=== PATIENT | male | born 1940 | race Caucasian/White ===

== ENCOUNTER 2017-10-06 05:38 | Inpatient (IN) ==
[2017-10-06] MEDS ORDERED: VANCOMYCIN INJ 1,000 MG in SODIUM CHLORIDE 0.9% 250 ML IV ONE (06:00)
[2017-10-06] MEDS ORDERED: ceFAZolin 1,000 MG in SYRINGE 1 EACH IV ONE (06:00)
[2017-10-06] MEDS ORDERED: ceFAZolin 1,000 MG VIAL ONE (06:01)
[2017-10-06] MEDS ORDERED: VANCOMYCIN 1,000 MG VIAL ONE (06:01)
[2017-10-06] MEDS ORDERED: TRANEXAMIC ACID 1,000 MG/10 ML VIAL IV ONE (06:20)
[2017-10-06] MEDS: SODIUM CHLORIDE 0.9% 1,000 ML IV SCH (06:45)
[2017-10-06] MEDS ORDERED: PANTOPRAZOLE 40 MG TABLET PO ONE ×2 (06:57→07:04)
[2017-10-06] MEDS ORDERED: ONDANSETRON 4 MG/2 ML VIAL IV PRN ×2 (08:36→09:28)
[2017-10-06] MEDS ORDERED: diphenhydrAMINE CAP 25 MG CAPSULE PO PRN (08:36)
[2017-10-06] MEDS ORDERED: NALOXONE 0.4 MG/ML VIAL IV PRN (08:36)
[2017-10-06] MEDS ORDERED: TEMAZEPAM 7.5 MG CAPSULE PO PRN (08:36)
[2017-10-06] MEDS ORDERED: PROMETHAZINE 25 MG/1 ML VIAL IM PRN (08:36)
[2017-10-06] MEDS ORDERED: HYDROmorphone 2 MG/1 ML VIAL IV PRN (08:36)
[2017-10-06] MEDS ORDERED: LACTULOSE 20 GM/30 ML UDCUP PO PRN (08:36)
[2017-10-06] MEDS ORDERED: BISACODYL 10 MG SUPP RECTAL PRN (08:36)
[2017-10-06] MEDS ORDERED: GABAPENTIN 600 MG TABLET PO PRN (08:39)
[2017-10-06] MEDS ORDERED: FUROSEMIDE 40 MG TABLET PO PRN (08:39)
[2017-10-06] MEDS ORDERED: CETIRIZINE 10 MG TABLET PO PRN (08:39)
[2017-10-06] MEDS ORDERED: GLUCAGON 1 MG VIAL IM PRN (08:41)
[2017-10-06] MEDS ORDERED: DEXTROSE 50% 25 GM/50 ML VIAL IV PRN (08:41)
[2017-10-06] MEDS ORDERED: ROPIVACAINE 0.5% 30 ML VIAL ONE (08:55)
[2017-10-06] MEDS ORDERED: Krill Oil [Krill Oil] 500 MG PO SCH (09:00)
[2017-10-06] MEDS ORDERED: PROPOFOL 200 MG/20 ML VIAL IV ONE (09:02)
[2017-10-06] MEDS ORDERED: fentaNYL 100 MCG/2 ML VIAL ONE (09:02)
[2017-10-06] MEDS ORDERED: KETAMINE 500 MG/10 ML VIAL ONE (09:03)
[2017-10-06] MEDS ORDERED: PROPOFOL 500 MG/50 ML BOTTLE IV ONE (09:03)
[2017-10-06] MEDS ORDERED: MIDAZOLAM 2 MG/2 ML VIAL ONE (09:03)
[2017-10-06] MEDS ORDERED: LACTATED RINGERS 1,000 ML IV ONE (09:03)
[2017-10-06] MEDS ORDERED: HYDROmorphone PCA 30 MG/30 ML SYRINGE IV ONE (09:09)
[2017-10-06] MEDS: HYDROmorphone PCA 30 MG/30 ML SYRINGE IV SCH (09:11)
[2017-10-06] MEDS ORDERED: HYDROmorphone 2 MG/1 ML VIAL ONE (09:26)
[2017-10-06] MEDS ORDERED: ONDANSETRON 4 MG/2 ML VIAL ONE (09:26)
[2017-10-06] MEDS: HYDROmorphone 2 MG/1 ML VIAL IV PRN ×3 (09:32→09:51)
[2017-10-06] MEDS ORDERED: INFLUENZA VIRUS VACCINE 0.5 ML SYRINGE IM ONE (10:39)
[2017-10-06] MEDS: DOCUSATE SODIUM 100 MG CAPSULE PO SCH ×2 (13:19→21:49)
[2017-10-06] MEDS: MULTIVITAMIN (CENTRUM) TABLET PO SCH (13:19)
[2017-10-06] MEDS: VALSARTAN 80 MG TABLET PO SCH (13:20)
[2017-10-06] MEDS: METOPROLOL TARTRATE 50 MG TABLET PO SCH (13:20)
[2017-10-06] MEDS: PANTOPRAZOLE 40 MG TABLET PO SCH (13:21)
[2017-10-06] MEDS: LYSINE 500 MG TABLET PO SCH (13:21)
[2017-10-06] MEDS: INSULIN REGULAR 100 UNIT/ML SUBCUT SCH ×3 (13:21→21:49)
[2017-10-06] MEDS: NIACIN 500 MG TABLET PO SCH (13:21)
[2017-10-06] MEDS: CHOLECALCIFEROL 1,000 UNIT TABLET PO SCH (13:21)
[2017-10-06] MEDS: ceFAZolin 2,000 MG in PREMIX 1 EACH IV SCH ×2 (13:27→19:45)
[2017-10-06] MEDS ORDERED: VALSARTAN 80 MG TABLET PO ONE (14:07)
[2017-10-06] MEDS: INSULIN LISPRO PROTAMINE/LISPRO 75/25 100 UNIT/ML SUBCUT SCH ×2 (17:13→17:21)
[2017-10-06] MEDS: FONDAPARINUX 2.5 MG/0.5 ML SYRINGE SUBCUT SCH (19:45)
[2017-10-06] MEDS: ALFUZOSIN 10 MG TABLET PO SCH (21:49)
[2017-10-06] MEDS: SIMVASTATIN 40 MG TABLET PO SCH (21:49)
[2017-10-06] MEDS: FENOFIBRATE 160 MG TABLET PO SCH (21:49)
[2017-10-07] MEDS: TEMAZEPAM 15 MG CAPSULE PO SCH ×2 (00:03→21:55)
[2017-10-07 04:05] LABS: Basophils % 0.4 % (0.0-0.8); Eosinophils # 0.1 10*3/uL (0.0-0.87); Eosinophils % 0.5 % (0.00-10.9); Hematocrit 27.5 VOL% (42.0-52.0); Hemoglobin 9.3 GM/DL (14.0-18.0); Immature Granulocytes % 0.5 %; Immature Granulocytes Absolute 0.05 #; Lymphocytes # 0.6 10*3/uL (1.4-4.0); Lymphocytes % 6.3 % (21.2-54.2); Mean Corpuscular HGB Conc 33.8 GM/DL (32-36); Mean Corpuscular Hemoglobin 30 PG (27-34); Monocytes % 10.3 % (1.7-12.7); Neutrophils # 7.8 10*3/uL (1.4-7.4); Platelet Count 242 T/CUMM (130-400); Red Blood Count 3.09 MC/CUMM (3.8-5.5); Red Cell Distribution Width 13.7 % (9.3-17.3); White Blood Count 9.5 T/CUMM (4-12)
[2017-10-07 04:45] LABS: Calcium 9.8 MG/DL (8.5-10.1); Osmolality,Calculated 282.7 MOS/KG (273-304); Potassium 3.6 MMOL/L (3.5-5.1)
[2017-10-07 05:05] LABS: Risk Ratio 2.29; VLDL CHOLESTEROL 16.2 MG/DL
[2017-10-07] MEDS: CHOLECALCIFEROL 1,000 UNIT TABLET PO SCH (09:32)
[2017-10-07] MEDS: NIACIN 500 MG TABLET PO SCH (09:32)
[2017-10-07] MEDS: MULTIVITAMIN (CENTRUM) TABLET PO SCH (09:33)
[2017-10-07] MEDS: VALSARTAN 80 MG TABLET PO SCH (09:33)
[2017-10-07] MEDS: LYSINE 500 MG TABLET PO SCH (09:33)
[2017-10-07] MEDS: PANTOPRAZOLE 40 MG TABLET PO SCH (09:33)
[2017-10-07] MEDS: DOCUSATE SODIUM 100 MG CAPSULE PO SCH ×2 (09:33→21:55)
[2017-10-07] MEDS: METOPROLOL TARTRATE 50 MG TABLET PO SCH (09:33)
[2017-10-07] MEDS: INSULIN REGULAR 100 UNIT/ML SUBCUT SCH ×4 (09:38→21:53)
[2017-10-07] MEDS: INSULIN LISPRO PROTAMINE/LISPRO 75/25 100 UNIT/ML SUBCUT SCH ×2 (09:38→17:28)
[2017-10-07] MEDS: FONDAPARINUX 2.5 MG/0.5 ML SYRINGE SUBCUT SCH (19:52)
[2017-10-07] MEDS: ALFUZOSIN 10 MG TABLET PO SCH (21:55)
[2017-10-07] MEDS: SIMVASTATIN 40 MG TABLET PO SCH (21:55)
[2017-10-07] MEDS: FENOFIBRATE 160 MG TABLET PO SCH (21:55)
[2017-10-08 07:23] LABS: Basophils % 0.1 % (0.0-0.8); Eosinophils % 0.3 % (0.00-10.9); Hematocrit 23.1 VOL% (42.0-52.0); Hemoglobin 7.6 GM/DL (14.0-18.0); Immature Granulocytes % 0.6 %; Immature Granulocytes Absolute 0.05 #; Lymphocytes # 0.6 10*3/uL (1.4-4.0); Lymphocytes % 6.3 % (21.2-54.2); Mean Corpuscular HGB Conc 32.9 GM/DL (32-36); Mean Corpuscular Hemoglobin 30 PG (27-34); Mean Platelet Volume 10.7 FL (9.6-12.0); Monocytes # 0.8 10*3/uL (0.11-0.8); Monocytes % 8.8 % (1.7-12.7); Neutrophils # 7.4 10*3/uL (1.4-7.4); Neutrophils % 83.9 % (38.7-73.9); Platelet Count 217 T/CUMM (130-400); Red Blood Count 2.51 MC/CUMM (3.8-5.5); Red Cell Distribution Width 13.7 % (9.3-17.3); White Blood Count 8.8 T/CUMM (4-12)
[2017-10-08] MEDS ORDERED: SODIUM CHLORIDE 0.9% 1,000 ML IV PRN (08:43)
[2017-10-08] MEDS ORDERED: TUBERCULIN SKIN TEST 0.1 ML SYRINGE INTRADERM ONE (11:05)
[2017-10-08] MEDS: INSULIN REGULAR 100 UNIT/ML SUBCUT SCH ×4 (11:09→20:47)
[2017-10-08] MEDS: MULTIVITAMIN (CENTRUM) TABLET PO SCH (11:09)
[2017-10-08] MEDS: INSULIN LISPRO PROTAMINE/LISPRO 75/25 100 UNIT/ML SUBCUT SCH ×2 (11:09→18:30)
[2017-10-08] MEDS: DOCUSATE SODIUM 100 MG CAPSULE PO SCH ×2 (11:10→20:47)
[2017-10-08] MEDS: METOPROLOL TARTRATE 50 MG TABLET PO SCH (11:10)
[2017-10-08] MEDS: VALSARTAN 80 MG TABLET PO SCH (11:10)
[2017-10-08] MEDS: CHOLECALCIFEROL 1,000 UNIT TABLET PO SCH (11:11)
[2017-10-08] MEDS: PANTOPRAZOLE 40 MG TABLET PO SCH (11:11)
[2017-10-08] MEDS: LYSINE 500 MG TABLET PO SCH (11:11)
[2017-10-08] MEDS: NIACIN 500 MG TABLET PO SCH (11:11)
[2017-10-08] MEDS: SODIUM CHLORIDE 0.9% 1,000 ML IV SCH (16:01)
[2017-10-08] MEDS: HYDROmorphone PCA 30 MG/30 ML SYRINGE IV SCH (16:01)
[2017-10-08] MEDS: FONDAPARINUX 2.5 MG/0.5 ML SYRINGE SUBCUT SCH (20:40)
[2017-10-08] MEDS: FENOFIBRATE 160 MG TABLET PO SCH (20:47)
[2017-10-08] MEDS: ALFUZOSIN 10 MG TABLET PO SCH (20:47)
[2017-10-08] MEDS: SIMVASTATIN 40 MG TABLET PO SCH (20:47)
[2017-10-08] MEDS: TEMAZEPAM 15 MG CAPSULE PO SCH (21:04)
[2017-10-09 06:20] LABS: Basophils % 0.1 % (0.0-0.8); Eosinophils # 0.2 10*3/uL (0.0-0.87); Eosinophils % 2.4 % (0.00-10.9); Hematocrit 28.6 VOL% (42.0-52.0); Hemoglobin 9.7 GM/DL (14.0-18.0); Immature Granulocytes % 0.9 %; Immature Granulocytes Absolute 0.07 #; Lymphocytes # 0.7 10*3/uL (1.4-4.0); Lymphocytes % 8.8 % (21.2-54.2); Mean Corpuscular HGB Conc 33.9 GM/DL (32-36); Mean Corpuscular Hemoglobin 30 PG (27-34); Mean Corpuscular Volume 89.1 FL (87-102); Mean Platelet Volume 10.7 FL (9.6-12.0); Monocytes # 0.7 10*3/uL (0.11-0.8); Monocytes % 8.6 % (1.7-12.7); Neutrophils # 6.2 10*3/uL (1.4-7.4); Neutrophils % 79.2 % (38.7-73.9); Platelet Count 222 T/CUMM (130-400); Red Blood Count 3.21 MC/CUMM (3.8-5.5); Red Cell Distribution Width 14.3 % (9.3-17.3); White Blood Count 7.8 T/CUMM (4-12)
[2017-10-09 06:55] LABS: Calcium 10.1 MG/DL (8.5-10.1); Magnesium 1.9 MG/DL (1.8-2.4); Osmolality,Calculated 288.1 MOS/KG (273-304); Potassium 4.8 MMOL/L (3.5-5.1)
[2017-10-09] MEDS: INSULIN LISPRO PROTAMINE/LISPRO 75/25 100 UNIT/ML SUBCUT SCH ×2 (09:07→17:03)
[2017-10-09] MEDS: INSULIN REGULAR 100 UNIT/ML SUBCUT SCH ×4 (09:07→20:55)
[2017-10-09] MEDS: MAGNESIUM HYDROXIDE SUSP 30 ML UDCUP PO PRN (09:08)
[2017-10-09] MEDS: NIACIN 500 MG TABLET PO SCH (09:08)
[2017-10-09] MEDS: PANTOPRAZOLE 40 MG TABLET PO SCH (09:08)
[2017-10-09] MEDS: LYSINE 500 MG TABLET PO SCH (09:08)
[2017-10-09] MEDS: DOCUSATE SODIUM 100 MG CAPSULE PO SCH ×2 (09:08→20:55)
[2017-10-09] MEDS: MULTIVITAMIN (CENTRUM) TABLET PO SCH (09:08)
[2017-10-09] MEDS: CHOLECALCIFEROL 1,000 UNIT TABLET PO SCH (09:08)
[2017-10-09] MEDS: METOPROLOL TARTRATE 50 MG TABLET PO SCH ×2 (09:08→20:54)
[2017-10-09] MEDS: VALSARTAN 80 MG TABLET PO SCH (09:08)
[2017-10-09] MEDS: FENOFIBRATE 160 MG TABLET PO SCH (20:54)
[2017-10-09] MEDS: ALFUZOSIN 10 MG TABLET PO SCH (20:54)
[2017-10-09] MEDS: FONDAPARINUX 2.5 MG/0.5 ML SYRINGE SUBCUT SCH (20:55)
[2017-10-09] MEDS: SIMVASTATIN 40 MG TABLET PO SCH (20:55)
[2017-10-09] MEDS: TEMAZEPAM 15 MG CAPSULE PO SCH (20:58)
[2017-10-10 06:17] LABS: Basophils % 0.5 % (0.0-0.8); Eosinophils # 0.4 10*3/uL (0.0-0.87); Eosinophils % 5.6 % (0.00-10.9); Hematocrit 25.7 VOL% (42.0-52.0); Hemoglobin 8.8 GM/DL (14.0-18.0); Immature Granulocytes % 1.2 %; Immature Granulocytes Absolute 0.08 #; Lymphocytes # 0.8 10*3/uL (1.4-4.0); Lymphocytes % 12.7 % (21.2-54.2); Mean Corpuscular HGB Conc 34.2 GM/DL (32-36); Mean Corpuscular Hemoglobin 30 PG (27-34); Mean Corpuscular Volume 87.4 FL (87-102); Mean Platelet Volume 10.8 FL (9.6-12.0); Monocytes # 0.5 10*3/uL (0.11-0.8); Monocytes % 7.8 % (1.7-12.7); Neutrophils # 4.8 10*3/uL (1.4-7.4); Neutrophils % 72.2 % (38.7-73.9); Platelet Count 242 T/CUMM (130-400); Red Blood Count 2.94 MC/CUMM (3.8-5.5); Red Cell Distribution Width 14.5 % (9.3-17.3); White Blood Count 6.6 T/CUMM (4-12)
[2017-10-10 06:44] LABS: Calcium 9.3 MG/DL (8.5-10.1); Magnesium 1.9 MG/DL (1.8-2.4); Osmolality,Calculated 283.1 MOS/KG (273-304); Potassium 4.3 MMOL/L (3.5-5.1)
[2017-10-10 06:48] LABS: Calcium 9.3 MG/DL (8.5-10.1); Osmolality,Calculated 283.1 MOS/KG (273-304); Potassium 4.3 MMOL/L (3.5-5.1)
[2017-10-10] MEDS ORDERED: BUPIVACAINE 0.5% 50 ML VIAL MISC INJ ONE (08:01)
[2017-10-10] MEDS: INSULIN REGULAR 100 UNIT/ML SUBCUT SCH ×4 (08:55→22:24)
[2017-10-10] MEDS: DOCUSATE SODIUM 100 MG CAPSULE PO SCH ×2 (08:56→22:24)
[2017-10-10] MEDS: MULTIVITAMIN (CENTRUM) TABLET PO SCH (08:56)
[2017-10-10] MEDS: VALSARTAN 80 MG TABLET PO SCH (08:56)
[2017-10-10] MEDS: METOPROLOL TARTRATE 50 MG TABLET PO SCH ×2 (08:56→22:24)
[2017-10-10] MEDS: PANTOPRAZOLE 40 MG TABLET PO SCH (08:57)
[2017-10-10] MEDS: LYSINE 500 MG TABLET PO SCH (08:57)
[2017-10-10] MEDS: NIACIN 500 MG TABLET PO SCH (08:57)
[2017-10-10] MEDS: CHOLECALCIFEROL 1,000 UNIT TABLET PO SCH (08:57)
[2017-10-10] MEDS ORDERED: BETAMETH SODIUM PHOS/ACETATE 30 MG/5 ML VIAL IM SCH (09:00)
[2017-10-10] MEDS: INSULIN LISPRO PROTAMINE/LISPRO 75/25 100 UNIT/ML SUBCUT SCH ×2 (09:13→16:16)
[2017-10-10] MEDS: FONDAPARINUX 2.5 MG/0.5 ML SYRINGE SUBCUT SCH (22:24)
[2017-10-10] MEDS: FENOFIBRATE 160 MG TABLET PO SCH (22:24)
[2017-10-10] MEDS: SIMVASTATIN 40 MG TABLET PO SCH (22:24)
[2017-10-10] MEDS: ALFUZOSIN 10 MG TABLET PO SCH (22:24)
[2017-10-10] MEDS: TEMAZEPAM 15 MG CAPSULE PO SCH (22:25)
[2017-10-10] MEDS: MAGNESIUM HYDROXIDE SUSP 30 ML UDCUP PO PRN (23:54)
[2017-10-11 06:09] LABS: Basophils % 0.1 % (0.0-0.8); Hematocrit 30.8 VOL% (42.0-52.0); Hemoglobin 10.3 GM/DL (14.0-18.0); Immature Granulocytes % 1.1 %; Immature Granulocytes Absolute 0.09 #; Lymphocytes # 0.6 10*3/uL (1.4-4.0); Lymphocytes % 7.6 % (21.2-54.2); Mean Corpuscular HGB Conc 33.4 GM/DL (32-36); Mean Corpuscular Hemoglobin 29 PG (27-34); Mean Corpuscular Volume 87.5 FL (87-102); Mean Platelet Volume 10.5 FL (9.6-12.0); Monocytes # 0.5 10*3/uL (0.11-0.8); Monocytes % 6.1 % (1.7-12.7); Neutrophils # 7.1 10*3/uL (1.4-7.4); Neutrophils % 85.1 % (38.7-73.9); Platelet Count 321 T/CUMM (130-400); Red Blood Count 3.52 MC/CUMM (3.8-5.5); Red Cell Distribution Width 13.8 % (9.3-17.3); White Blood Count 8.3 T/CUMM (4-12)
[2017-10-11] MEDS: INSULIN LISPRO PROTAMINE/LISPRO 75/25 100 UNIT/ML SUBCUT SCH (09:47)
[2017-10-11] MEDS: MULTIVITAMIN (CENTRUM) TABLET PO SCH (09:48)
[2017-10-11] MEDS: DOCUSATE SODIUM 100 MG CAPSULE PO SCH (09:48)
[2017-10-11] MEDS: VALSARTAN 80 MG TABLET PO SCH (09:48)
[2017-10-11] MEDS: PANTOPRAZOLE 40 MG TABLET PO SCH (09:48)
[2017-10-11] MEDS: INSULIN REGULAR 100 UNIT/ML SUBCUT SCH ×2 (09:48→13:10)
[2017-10-11] MEDS: METOPROLOL TARTRATE 50 MG TABLET PO SCH (09:48)
[2017-10-11] MEDS: LYSINE 500 MG TABLET PO SCH (09:48)
[2017-10-11] MEDS: NIACIN 500 MG TABLET PO SCH (09:49)
[2017-10-11] MEDS: CHOLECALCIFEROL 1,000 UNIT TABLET PO SCH (09:49)
[2017-10-11 11:42] VITALS: BP 192/78
== END 2017-10-11 13:00 | disposition swing bed (61) | DRG 470 ==
LOC: N.SDSINP 05:38 → N.3E 10:13
PROVIDERS: ADMIT Orthopaedic Surgery; ATTEND Orthopaedic Surgery

== ENCOUNTER 2021-06-17 12:50 | Inpatient (IN) ==
[2021-06-17] MEDS ORDERED: MAGNESIUM SULF RIDER 2 GM/50 ML PREMIX IV PRN (13:21)
[2021-06-17] MEDS ORDERED: DEXTROSE 50% 25 GM/50 ML VIAL IV PRN (13:21)
[2021-06-17] MEDS ORDERED: ONDANSETRON 4 MG/2 ML VIAL IV PRN (13:21)
[2021-06-17] MEDS ORDERED: GLUCAGON 1 MG VIAL IM PRN (13:21)
[2021-06-17] MEDS ORDERED: MAGNESIUM SULF RIDER 4 GM/100 ML PREMIX IV PRN (13:21)
[2021-06-17] MEDS ORDERED: hydrALAZINE 20 MG/1 ML VIAL IV PRN (13:48)
[2021-06-17 14:47] LABS: Basophils % 0.7 % (0.0-0.8); Eosinophils # 0.1 10*3/uL (0.0-0.87); Hematocrit 30.5 VOL% (42.0-52.0); Hemoglobin 10.1 GM/DL (14.0-18.0); Immature Granulocytes % 0.5 %; Immature Granulocytes Absolute 0.03 #; Lymphocytes # 0.8 10*3/uL (1.4-4.0); Mean Corpuscular HGB Conc 33.1 GM/DL (32-36); Mean Corpuscular Volume 89.4 FL (87-102); Mean Platelet Volume 9.5 FL (9.6-12.0); Monocytes % 5.8 % (1.7-12.7); Platelet Count 294 T/CUMM (130-400); Red Blood Count 3.41 MC/CUMM (3.8-5.5); Red Cell Distribution Width 13.2 % (9.3-17.3)
[2021-06-17] MEDS: SODIUM CHLORIDE 0.9% 1,000 ML IV SCH ×2 (14:59→22:31)
[2021-06-17] MEDS: PANTOPRAZOLE 40 MG TABLET PO SCH (14:59)
[2021-06-17] MEDS: cefTRIAXone 1,000 MG in SODIUM CHLORIDE 0.9% 100 ML IV SCH (14:59)
[2021-06-17 15:15] LABS: Albumin 3.8 G/DL (3.4-5.0); Bilirubin,Total 0.5 MG/DL (0.20-1.00); Calcium 10.8 MG/DL (8.5-10.1); Osmolality,Calculated 282.1 MOS/KG (273-304); Total Protein 7.1 G/DL (6.4-8.2)
[2021-06-17] MEDS: INSULIN LISPRO 100 UNIT/ML SUBCUT SCH ×2 (17:16→20:41)
[2021-06-17] MEDS: ACETAMINOPHEN 325 MG TABLET PO PRN (17:16)
[2021-06-17] MEDS: amLODIPine 5 MG TABLET PO SCH (17:16)
[2021-06-17 17:46] LABS: Bilirubin,Urine Negative (Negative); Blood, Urine Negative (Negative); Glucose,Urine (UA) >=500 mg/dL (Negative); Ketones,Urine 5 mg/dL (Negative); Mucus,Urine Occasional /LPF (Occasional); Nitrite,Urine Negative (Negative); Protein,Urine 30 MG/DL; RBC,Urine 1 /HPF (0-4); Urine Appearance CLEAR (Clear); Urine Color Yellow (Yellow); Urine Specific Gravity 1.015 (1.001-1.035); Urine Urobilinogen < 2.0 EU/DL (0.2-1.0)
[2021-06-17] MEDS: DOCUSATE SODIUM 100 MG CAPSULE PO SCH (20:41)
[2021-06-18] MEDS: ACETAMINOPHEN 325 MG TABLET PO PRN ×2 (00:34→06:17)
[2021-06-18 05:54] LABS: Basophils % 0.6 % (0.0-0.8); Eosinophils # 0.3 10*3/uL (0.0-0.87); Eosinophils % 5.3 % (0.00-10.9); Hematocrit 27.5 VOL% (42.0-52.0); Hemoglobin 9.2 GM/DL (14.0-18.0); Immature Granulocytes % 0.4 %; Immature Granulocytes Absolute 0.02 #; Lymphocytes % 19.9 % (21.2-54.2); Mean Corpuscular HGB Conc 33.5 GM/DL (32-36); Mean Corpuscular Volume 88.7 FL (87-102); Monocytes % 9.3 % (1.7-12.7); Neutrophils % 64.5 % (38.7-73.9); Platelet Count 273 T/CUMM (130-400); Red Cell Distribution Width 13.1 % (9.3-17.3); White Blood Count 4.9 T/CUMM (4-12)
[2021-06-18 06:10] LABS: Albumin 3.3 G/DL (3.4-5.0); Bilirubin,Total 0.5 MG/DL (0.20-1.00); Osmolality,Calculated 281.7 MOS/KG (273-304); Potassium 3.3 MMOL/L (3.5-5.1); Total Protein 6.3 G/DL (6.4-8.2)
[2021-06-18] MEDS: DOCUSATE SODIUM 100 MG CAPSULE PO SCH ×2 (08:20→20:12)
[2021-06-18] MEDS: PANTOPRAZOLE 40 MG TABLET PO SCH (08:20)
[2021-06-18] MEDS: amLODIPine 5 MG TABLET PO SCH (08:20)
[2021-06-18] MEDS: INSULIN LISPRO 100 UNIT/ML SUBCUT SCH ×4 (09:05→20:12)
[2021-06-18] MEDS: SODIUM CHLORIDE 0.9% 1,000 ML IV SCH ×3 (09:24→23:05)
[2021-06-18] MEDS ORDERED: amLODIPine 5 MG TABLET PO ONE (15:00)
[2021-06-18] MEDS: APIXABAN 2.5 MG TABLET PO SCH (20:12)
[2021-06-18] MEDS: cefTRIAXone 1,000 MG in SODIUM CHLORIDE 0.9% 100 ML IV SCH (23:04)
[2021-06-19 06:40] LABS: Basophils % 0.6 % (0.0-0.8); Eosinophils # 0.3 10*3/uL (0.0-0.87); Eosinophils % 6.2 % (0.00-10.9); Hematocrit 27.1 VOL% (42.0-52.0); Immature Granulocytes % 0.6 %; Immature Granulocytes Absolute 0.03 #; Mean Corpuscular HGB Conc 33.2 GM/DL (32-36); Mean Corpuscular Volume 89.7 FL (87-102); Monocytes % 10.6 % (1.7-12.7); Platelet Count 251 T/CUMM (130-400); Red Blood Count 3.02 MC/CUMM (3.8-5.5); Red Cell Distribution Width 13.3 % (9.3-17.3); White Blood Count 5.2 T/CUMM (4-12)
[2021-06-19 07:05] LABS: Albumin 3.2 G/DL (3.4-5.0); Bilirubin,Total 0.5 MG/DL (0.20-1.00); Calcium 9.6 MG/DL (8.5-10.1); Osmolality,Calculated 286.1 MOS/KG (273-304); Potassium 3.4 MMOL/L (3.5-5.1)
[2021-06-19] MEDS: DOCUSATE SODIUM 100 MG CAPSULE PO SCH ×2 (08:22→20:13)
[2021-06-19] MEDS: ASPIRIN EC 81 MG TABLET PO SCH (08:22)
[2021-06-19] MEDS: APIXABAN 2.5 MG TABLET PO SCH ×2 (08:23→20:13)
[2021-06-19] MEDS: INSULIN LISPRO 100 UNIT/ML SUBCUT SCH ×4 (08:23→20:12)
[2021-06-19] MEDS: PANTOPRAZOLE 40 MG TABLET PO SCH (08:23)
[2021-06-19] MEDS: amLODIPine 5 MG TABLET PO SCH (08:23)
[2021-06-19] MEDS ORDERED: POTASSIUM CHLORIDE RIDER 10 MEQ/100 ML PREMIX IV PRN (08:47)
[2021-06-19] MEDS: POTASSIUM CHLORIDE 20 MEQ TABLET PO PRN ×4 (10:19→23:30)
[2021-06-19] MEDS ORDERED: POLYVINYL ALCOHOL 1.4% OPH SOLN 15 ML BOTTLE BOTH EYES PRN (13:41)
[2021-06-19] MEDS: SODIUM CHLORIDE 0.9% 1,000 ML IV SCH (14:06)
[2021-06-19] MEDS ORDERED: TUBERCULIN SKIN TEST 0.1 ML SYRINGE INTRADERM ONE (15:00)
[2021-06-19] MEDS: cefTRIAXone 1,000 MG in SODIUM CHLORIDE 0.9% 100 ML IV SCH (20:12)
[2021-06-19] MEDS: ACETAMINOPHEN 325 MG TABLET PO PRN (20:13)
[2021-06-19] MEDS ORDERED: diphenhydrAMINE CAP 25 MG CAPSULE PO PRN (23:03)
[2021-06-19] MEDS ORDERED: diphenhydrAMINE CAP 50 MG CAPSULE PO PRN (23:04)
[2021-06-20] MEDS ORDERED: LOSARTAN 50 MG TABLET PO SCH (09:00)
[2021-06-20] MEDS: INSULIN LISPRO 100 UNIT/ML SUBCUT SCH ×2 (09:35→11:58)
[2021-06-20] MEDS: ASPIRIN EC 81 MG TABLET PO SCH (09:36)
[2021-06-20] MEDS: amLODIPine 5 MG TABLET PO SCH (09:36)
[2021-06-20] MEDS: APIXABAN 2.5 MG TABLET PO SCH (09:36)
[2021-06-20] MEDS: PANTOPRAZOLE 40 MG TABLET PO SCH (09:36)
[2021-06-20] MEDS: DOCUSATE SODIUM 100 MG CAPSULE PO SCH (09:36)
[2021-06-20] MEDS: SODIUM CHLORIDE 0.9% 1,000 ML IV SCH (09:39)
[2021-06-20 11:54] VITALS: BP 170/63
== END 2021-06-20 13:38 | disposition swing bed (61) | DRG 202 ==
LOC: N.5E
PROVIDERS: ADMIT Family Medicine; ATTEND Family Medicine

== ENCOUNTER 2021-10-25 11:52 | Inpatient (IN) ==
[2021-10-25 14:07] LABS: Basophils # 0.1 10*3/uL (0.0-0.2); Basophils % 0.4 % (0.0-0.8); Eosinophils # 0.1 10*3/uL (0.0-0.87); Eosinophils % 0.6 % (0.00-10.9); Hematocrit 28.6 VOL% (42.0-52.0); Hemoglobin 9.2 GM/DL (14.0-18.0); Lymphocytes # 0.8 10*3/uL (1.4-4.0); Lymphocytes % 6.6 % (21.2-54.2); Mean Corpuscular HGB Conc 32.2 GM/DL (32-36); Mean Corpuscular Volume 89.1 FL (87-102); Mean Platelet Volume 10.3 FL (9.6-12.0); Monocytes % 5.7 % (1.7-12.7); Platelet Count 197 T/CUMM (130-400); Red Blood Count 3.21 MC/CUMM (3.8-5.5); Red Cell Distribution Width 13.7 % (9.3-17.3); White Blood Count 11.6 T/CUMM (4-12)
[2021-10-25 14:32] LABS: Calcium 10.5 MG/DL (8.5-10.1); Osmolality,Calculated 281.5 MOS/KG (273-304); Potassium 4.4 MMOL/L (3.5-5.1)
[2021-10-25] MEDS ORDERED: ACETAMINOPHEN 325 MG TABLET PO PRN (15:20)
[2021-10-25] MEDS ORDERED: ONDANSETRON 4 MG/2 ML VIAL IV PRN (15:20)
[2021-10-25] MEDS ORDERED: GLUCAGON 1 MG VIAL IM PRN (15:20)
[2021-10-25] MEDS ORDERED: FUROSEMIDE 20 MG TABLET PO PRN (15:22)
[2021-10-25] MEDS ORDERED: DEXTROSE 10% 250 ML BAG IV PRN (16:25)
[2021-10-25] MEDS ORDERED: GABAPENTIN 300 MG CAPSULE PO PRN (16:54)
[2021-10-25] MEDS: SIMVASTATIN 40 MG TABLET PO SCH (20:10)
[2021-10-25] MEDS: DOCUSATE SODIUM 100 MG CAPSULE PO SCH (20:10)
[2021-10-26 05:04] LABS: Basophils # 0.1 10*3/uL (0.0-0.2); Basophils % 0.5 % (0.0-0.8); Eosinophils # 0.1 10*3/uL (0.0-0.87); Eosinophils % 1.3 % (0.00-10.9); Hematocrit 25.4 VOL% (42.0-52.0); Hemoglobin 8.1 GM/DL (14.0-18.0); Immature Granulocytes % 0.3 %; Immature Granulocytes Absolute 0.03 #; Lymphocytes % 9.3 % (21.2-54.2); Mean Corpuscular HGB Conc 31.9 GM/DL (32-36); Mean Corpuscular Volume 90.1 FL (87-102); Mean Platelet Volume 11.2 FL (9.6-12.0); Monocytes % 7.7 % (1.7-12.7); Neutrophils % 80.9 % (38.7-73.9); Platelet Count 186 T/CUMM (130-400); Red Blood Count 2.82 MC/CUMM (3.8-5.5)
[2021-10-26 05:36] LABS: Alanine Aminotransferase 11 U/L (16-61); Albumin 2.8 G/DL (3.4-5.0); Alkaline Phosphatase 38 U/L (45-117); Aspartate Amino Transferase 13 U/L (0-37); Bilirubin,Total < 0.39 MG/DL (0.20-1.00); Blood Urea Nitrogen 38 MG/DL (7-18); Calcium 10.3 MG/DL (8.5-10.1); Carbon Dioxide 24 MMOL/L (21-32); Estimated Glom Filtration Rate 26 ML/MIN; Glucose 304 MG/DL (74-106); Osmolality,Calculated 287.2 MOS/KG (273-304); Potassium 4.3 MMOL/L (3.5-5.1); Sodium 134 MMOL/L (136-145); Total Protein 6.4 G/DL (6.4-8.2)
[2021-10-26] MEDS: sitaGLIPtin 100 MG TABLET PO SCH (08:07)
[2021-10-26] MEDS: PANTOPRAZOLE 40 MG TABLET PO SCH (08:07)
[2021-10-26] MEDS: amLODIPine 10 MG TABLET PO SCH (08:07)
[2021-10-26] MEDS: FENOFIBRATE 160 MG TABLET PO SCH (08:07)
[2021-10-26] MEDS: DOCUSATE SODIUM 100 MG CAPSULE PO SCH ×2 (08:07→21:02)
[2021-10-26] MEDS ORDERED: LOSARTAN 50 MG TABLET PO SCH (09:00)
[2021-10-26] MEDS ORDERED: INSULIN LISPRO PROTAMINE/LISPRO 75/25 100 UNIT/ML SUBCUT PRN ×2 (10:40)
[2021-10-26] MEDS ORDERED: DEXTROSE 50% 25 GM/50 ML VIAL IV PRN (10:43)
[2021-10-26] MEDS: INSULIN LISPRO 100 UNIT/ML SUBCUT SCH ×3 (11:59→21:30)
[2021-10-26] MEDS: SIMVASTATIN 40 MG TABLET PO SCH (21:02)
[2021-10-27 05:53] LABS: Basophils % 0.3 % (0.0-0.8); Eosinophils # 0.3 10*3/uL (0.0-0.87); Eosinophils % 2.6 % (0.00-10.9); Hematocrit 27.5 VOL% (42.0-52.0); Hemoglobin 8.6 GM/DL (14.0-18.0); Immature Granulocytes % 0.4 %; Immature Granulocytes Absolute 0.04 #; Lymphocytes # 1.3 10*3/uL (1.4-4.0); Lymphocytes % 11.2 % (21.2-54.2); Mean Corpuscular HGB Conc 31.3 GM/DL (32-36); Mean Corpuscular Volume 90.8 FL (87-102); Monocytes % 7.9 % (1.7-12.7); Neutrophils % 77.6 % (38.7-73.9); Platelet Count 195 T/CUMM (130-400); Red Blood Count 3.03 MC/CUMM (3.8-5.5); Red Cell Distribution Width 13.9 % (9.3-17.3); White Blood Count 11.2 T/CUMM (4-12)
[2021-10-27 06:14] LABS: Calcium 10.8 MG/DL (8.5-10.1); Osmolality,Calculated 284.2 MOS/KG (273-304); Potassium 4.1 MMOL/L (3.5-5.1)
[2021-10-27] MEDS: INSULIN LISPRO 100 UNIT/ML SUBCUT SCH ×4 (08:34→22:43)
[2021-10-27] MEDS: cefTRIAXone 1,000 MG in SODIUM CHLORIDE 0.9% 100 ML IV SCH (08:35)
[2021-10-27] MEDS: PANTOPRAZOLE 40 MG TABLET PO SCH (10:31)
[2021-10-27] MEDS: sitaGLIPtin 100 MG TABLET PO SCH (10:31)
[2021-10-27] MEDS: DOCUSATE SODIUM 100 MG CAPSULE PO SCH ×2 (10:31→21:50)
[2021-10-27] MEDS: FENOFIBRATE 160 MG TABLET PO SCH (12:28)
[2021-10-27] MEDS: FERROUS SULFATE 325 MG TABLET PO SCH ×2 (12:28→16:09)
[2021-10-27] MEDS: DUTASTERIDE 0.5 MG CAPSULE PO SCH (12:28)
[2021-10-27] MEDS: amLODIPine 10 MG TABLET PO SCH (12:28)
[2021-10-27] MEDS: SIMVASTATIN 40 MG TABLET PO SCH (21:50)
[2021-10-28 05:08] LABS: Basophils % 0.4 % (0.0-0.8); Eosinophils # 0.3 10*3/uL (0.0-0.87); Eosinophils % 2.8 % (0.00-10.9); Hematocrit 26.4 VOL% (42.0-52.0); Hemoglobin 8.3 GM/DL (14.0-18.0); Immature Granulocytes % 0.4 %; Immature Granulocytes Absolute 0.04 #; Lymphocytes # 0.9 10*3/uL (1.4-4.0); Lymphocytes % 9.8 % (21.2-54.2); Mean Corpuscular HGB Conc 31.4 GM/DL (32-36); Mean Corpuscular Volume 90.7 FL (87-102); Mean Platelet Volume 11.2 FL (9.6-12.0); Monocytes % 7.6 % (1.7-12.7); Platelet Count 226 T/CUMM (130-400); Red Blood Count 2.91 MC/CUMM (3.8-5.5); Red Cell Distribution Width 13.3 % (9.3-17.3); White Blood Count 9.1 T/CUMM (4-12)
[2021-10-28 05:34] LABS: Calcium 10.8 MG/DL (8.5-10.1); Osmolality,Calculated 289.4 MOS/KG (273-304); Potassium 4.1 MMOL/L (3.5-5.1)
[2021-10-28] MEDS: DUTASTERIDE 0.5 MG CAPSULE PO SCH (09:01)
[2021-10-28] MEDS: amLODIPine 10 MG TABLET PO SCH (09:01)
[2021-10-28] MEDS: PANTOPRAZOLE 40 MG TABLET PO SCH (09:01)
[2021-10-28] MEDS: FENOFIBRATE 160 MG TABLET PO SCH (09:01)
[2021-10-28] MEDS: DOCUSATE SODIUM 100 MG CAPSULE PO SCH ×2 (09:01→20:39)
[2021-10-28] MEDS: sitaGLIPtin 100 MG TABLET PO SCH (09:01)
[2021-10-28] MEDS: FERROUS SULFATE 325 MG TABLET PO SCH ×2 (09:01→18:32)
[2021-10-28] MEDS: cefTRIAXone 1,000 MG in SODIUM CHLORIDE 0.9% 100 ML IV SCH (09:02)
[2021-10-28] MEDS: INSULIN LISPRO 100 UNIT/ML SUBCUT SCH ×4 (09:02→20:44)
[2021-10-28] MEDS: MEMANTINE 5 MG TABLET PO SCH (20:39)
[2021-10-28] MEDS: SIMVASTATIN 40 MG TABLET PO SCH (20:39)
[2021-10-29 06:57] LABS: Basophils % 0.5 % (0.0-0.8); Eosinophils # 0.5 10*3/uL (0.0-0.87); Hematocrit 26.9 VOL% (42.0-52.0); Hemoglobin 8.5 GM/DL (14.0-18.0); Immature Granulocytes % 0.5 %; Immature Granulocytes Absolute 0.04 #; Lymphocytes # 1.1 10*3/uL (1.4-4.0); Lymphocytes % 14.2 % (21.2-54.2); Mean Corpuscular HGB Conc 31.6 GM/DL (32-36); Mean Corpuscular Volume 89.7 FL (87-102); Mean Platelet Volume 11.3 FL (9.6-12.0); Monocytes % 6.4 % (1.7-12.7); Neutrophils % 71.4 % (38.7-73.9); Platelet Count 237 T/CUMM (130-400); Red Cell Distribution Width 13.3 % (9.3-17.3); White Blood Count 7.5 T/CUMM (4-12)
[2021-10-29 07:06] LABS: Calcium 11.1 MG/DL (8.5-10.1); Potassium 4.3 MMOL/L (3.5-5.1)
[2021-10-29 07:13] LABS: Folate 22.86 NG/ML (5.38-24.0)
[2021-10-29 07:15] LABS: Free T4 (Free Thyroxine) 1.23 NG/DL (0.76-1.46); Thyroid Stimulating Hormone 0.938 uIU/ml (0.358-3.74)
[2021-10-29] MEDS: FERROUS SULFATE 325 MG TABLET PO SCH (09:04)
[2021-10-29] MEDS: DUTASTERIDE 0.5 MG CAPSULE PO SCH (09:04)
[2021-10-29] MEDS: amLODIPine 10 MG TABLET PO SCH (09:04)
[2021-10-29] MEDS: cefTRIAXone 1,000 MG in SODIUM CHLORIDE 0.9% 100 ML IV SCH (09:04)
[2021-10-29] MEDS: INSULIN LISPRO 100 UNIT/ML SUBCUT SCH ×2 (09:04→12:33)
[2021-10-29] MEDS: PANTOPRAZOLE 40 MG TABLET PO SCH (09:04)
[2021-10-29] MEDS: sitaGLIPtin 100 MG TABLET PO SCH (09:04)
[2021-10-29] MEDS: DOCUSATE SODIUM 100 MG CAPSULE PO SCH (09:04)
[2021-10-29] MEDS: FENOFIBRATE 160 MG TABLET PO SCH (09:04)
[2021-10-29] MEDS: MEMANTINE 5 MG TABLET PO SCH (09:05)
[2021-10-29 12:05] VITALS: BP 155/60
== END 2021-10-29 15:02 | disposition home health service (06) | DRG 813 ==
LOC: N.ED 11:52 → N.EDINP 15:20 → N.3E 17:42
PROVIDERS: ADMIT Family Medicine; ATTEND Family Medicine

== ENCOUNTER 2022-06-02 10:51 | Inpatient (IN) ==
[2022-06-02] MEDS ORDERED: NALOXONE 0.4 MG/ML VIAL IV STA (11:03)
[2022-06-02 11:12] LABS: Basophils % 0.3 % (0.0-0.8); Eosinophils # 0.1 10*3/uL (0.0-0.87); Hematocrit 23.4 VOL% (42.0-52.0); Hemoglobin 7.1 GM/DL (14.0-18.0); Immature Granulocytes % 0.6 %; Immature Granulocytes Absolute 0.06 #; Lymphocytes # 0.5 10*3/uL (1.4-4.0); Lymphocytes % 4.8 % (21.2-54.2); Mean Corpuscular HGB Conc 30.3 GM/DL (32-36); Mean Corpuscular Volume 94.4 FL (87-102); Mean Platelet Volume 10.7 FL (9.6-12.0); Monocytes # 0.8 10*3/uL (0.11-0.8); Monocytes % 7.9 % (1.7-12.7); Neutrophils % 85.4 % (38.7-73.9); Platelet Count 224 T/CUMM (130-400); Red Blood Count 2.48 MC/CUMM (3.8-5.5); Red Cell Distribution Width 16.4 % (9.3-17.3); White Blood Count 10.2 T/CUMM (4-12)
[2022-06-02] MEDS ORDERED: ETOMIDATE 20 MG/10 ML VIAL IV ONE (11:13)
[2022-06-02] MEDS ORDERED: ROCURONIUM 100 MG/10 ML VIAL IV ONE (11:14)
[2022-06-02 11:23] LABS: PT Patient Result 11.4 SECS (10.1-12.1); Partial Thromboplastin Time 24.4 SECS (23.7-32.9)
[2022-06-02 11:30] LABS: Arterial Base Excess iSTAT 6 MMOL/L (-2.5-2.5); Arterial Bicarbonate iSTAT 31.5 MMOL/L (20-26); Arterial O2 Saturation iSTAT 100 % (95-100); Arterial PCO2 iSTAT 52 MM HG (35-48); Arterial PO2 iSTAT 400 MM HG (80-95); Arterial Total CO2 iSTAT 33 MMO/L (23-27); Arterial pH iSTAT 7.393 (7.35-7.45)
[2022-06-02 11:39] LABS: Albumin 2.9 G/DL (3.4-5.0); Bilirubin,Total 0.4 MG/DL (0.20-1.00); Calcium 9.4 MG/DL (8.5-10.1); Osmolality,Calculated 291.7 MOS/KG (273-304); Potassium 3.3 MMOL/L (3.5-5.1)
[2022-06-02 11:44] LABS: Mucus,Urine Occasional /LPF (Occasional); Squamous Epithelial Cell,Urine Occasional /HPF (0-10)
[2022-06-02 11:45] LABS: Urine Color Yellow (Yellow)
[2022-06-02 11:46] LABS: Glucose,Urine (UA) 100 mg/dL (Negative); Protein,Urine Negative (Negative); Urine Appearance Clear (Clear); Urine Specific Gravity 1.015 (1.001-1.035); Urine pH 6.5 (4.5-8.0)
[2022-06-02 11:47] LABS: Bilirubin,Urine Negative (Negative); Blood, Urine Negative (Negative); Ketones,Urine Negative (Negative); Nitrite,Urine Negative (Negative); Urine Urobilinogen < 2.0 eU/dL (<2.0)
[2022-06-02 11:50] LABS: Barbiturates Screen,Urine Negative (Negative); Benzodiazepines Screen,Urine Negative (Negative); Cannabinoid Screen,Urine Negative (Negative); Opiate Screen,Urine Positive (Negative); Phencyclidine Screen,Urine Negative (Negative)
[2022-06-02 11:59] LABS: Eosinophils 3 % (0-10); Lymphocytes 6 % (20-55)
[2022-06-02 12:00] LABS: Hypochromia Slight; Ovalocytes Few; Platelet Estimate Normal
[2022-06-02 12:01] LABS: Total Cells Counted 100
[2022-06-02] MEDS ORDERED: ONDANSETRON 4 MG/2 ML VIAL IV PRN (13:29)
[2022-06-02] MEDS ORDERED: ALBUTEROL 2.5 MG/3 ML NEB RESP TX PRN (13:29)
[2022-06-02] MEDS ORDERED: ENOXAPARIN 40 MG/0.4 ML SYRINGE SUBCUT SCH (14:00)
[2022-06-02] MEDS ORDERED: GLUCAGON 1 MG VIAL IM PRN (14:46)
[2022-06-02] MEDS ORDERED: DEXTROSE 10% 250 ML BAG IV PRN (14:47)
[2022-06-02] MEDS: LACTATED RINGERS 1,000 ML IV SCH (14:55)
[2022-06-02] MEDS: PANTOPRAZOLE 40 MG VIAL IV SCH (15:55)
[2022-06-02] MEDS ORDERED: niCARdipine INJ 25 MG in SODIUM CHLORIDE 0.9% 240 ML IV PRN (15:56)
[2022-06-02] MEDS: INSULIN LISPRO PROTAMINE/LISPRO 75/25 100 UNIT/ML SUBCUT SCH (16:23)
[2022-06-02] MEDS: INSULIN LISPRO 100 UNIT/ML SUBCUT SCH ×2 (16:23→20:52)
[2022-06-02] MEDS: ASPIRIN EC 81 MG TABLET PO SCH (20:52)
[2022-06-02] MEDS: cloNIDine 0.1 MG TABLET PO SCH (20:53)
[2022-06-02] MEDS: APIXABAN 2.5 MG TABLET PO SCH (20:53)
[2022-06-02] MEDS ORDERED: DEXTROSE 5% NACL 0.9% 1,000 ML IV SCH (23:45)
[2022-06-03] MEDS: DEXTROSE 5% LACTATED RINGERS 1,000 ML IV SCH ×2 (00:16→21:02)
[2022-06-03] MEDS: INSULIN LISPRO 100 UNIT/ML SUBCUT SCH ×7 (01:01→23:31)
[2022-06-03 03:38] LABS: Arterial Base Excess iSTAT 4 MMOL/L (-2.5-2.5); Arterial Bicarbonate iSTAT 27.2 MMOL/L (20-26); Arterial O2 Saturation iSTAT 99 % (95-100); Arterial PCO2 iSTAT 35 MM HG (35-48); Arterial PO2 iSTAT 145 MM HG (80-95); Arterial Total CO2 iSTAT 28 MMO/L (23-27); Arterial pH iSTAT 7.502 (7.35-7.45)
[2022-06-03 06:00] LABS: Basophils % 0.4 % (0.0-0.8); Eosinophils # 0.3 10*3/uL (0.0-0.87); Hematocrit 21.1 VOL% (42.0-52.0); Hemoglobin 6.5 GM/DL (14.0-18.0); Immature Granulocytes % 0.4 %; Immature Granulocytes Absolute 0.03 #; Lymphocytes # 0.8 10*3/uL (1.4-4.0); Lymphocytes % 10.5 % (21.2-54.2); Mean Corpuscular HGB Conc 30.8 GM/DL (32-36); Mean Corpuscular Volume 94.2 FL (87-102); Mean Platelet Volume 10.6 FL (9.6-12.0); Monocytes # 0.7 10*3/uL (0.11-0.8); Monocytes % 9.5 % (1.7-12.7); Neutrophils % 75.2 % (38.7-73.9); Platelet Count 197 T/CUMM (130-400); Red Blood Count 2.24 MC/CUMM (3.8-5.5); Red Cell Distribution Width 16.4 % (9.3-17.3); White Blood Count 7.6 T/CUMM (4-12)
[2022-06-03 06:16] LABS: Albumin 2.5 G/DL (3.4-5.0); Bilirubin,Total 0.4 MG/DL (0.20-1.00); Calcium 9.7 MG/DL (8.5-10.1); Osmolality,Calculated 290.1 MOS/KG (273-304); Potassium 3.1 MMOL/L (3.5-5.1); Total Protein 5.4 G/DL (6.4-8.2)
[2022-06-03] MEDS: LACTATED RINGERS 1,000 ML IV SCH (07:19)
[2022-06-03] MEDS: INSULIN LISPRO PROTAMINE/LISPRO 75/25 100 UNIT/ML SUBCUT SCH ×2 (08:27→16:28)
[2022-06-03] MEDS ORDERED: FUROSEMIDE 40 MG/4 ML VIAL IV ONE (08:35)
[2022-06-03] MEDS: APIXABAN 2.5 MG TABLET PO SCH ×2 (09:20→21:02)
[2022-06-03] MEDS: cloNIDine 0.1 MG TABLET PO SCH ×2 (09:21→21:02)
[2022-06-03] MEDS: POTASSIUM BICARB EFFERVESCENT 20 MEQ TAB.EFF PER TUBE PRN ×4 (09:36→18:09)
[2022-06-03] MEDS: AZITHROMYCIN INJ 500 MG in SODIUM CHLORIDE 0.9% 250 ML IV SCH (10:20)
[2022-06-03] MEDS ORDERED: SODIUM CHLORIDE 0.9% 1,000 ML IV PRN (10:42)
[2022-06-03 11:00] LABS: Hematocrit 24.6 VOL% (42.0-52.0); Hemoglobin 7.6 GM/DL (14.0-18.0)
[2022-06-03] MEDS: DEXAMETHASONE 4 MG/1 ML VIAL IV SCH (11:15)
[2022-06-03 11:25] LABS: Arterial Base Excess iSTAT 4 MMOL/L (-2.5-2.5); Arterial Bicarbonate iSTAT 29.2 MMOL/L (20-26); Arterial O2 Saturation iSTAT 27 % (95-100); Arterial PCO2 iSTAT 46 MM HG (35-48); Arterial PO2 iSTAT 18 MM HG (80-95); Arterial Total CO2 iSTAT 31 MMO/L (23-27); Arterial pH iSTAT 7.408 (7.35-7.45)
[2022-06-03 11:42] LABS: Arterial Base Excess iSTAT 3 MMOL/L (-2.5-2.5); Arterial Bicarbonate iSTAT 28.2 MMOL/L (20-26); Arterial O2 Saturation iSTAT 96 % (95-100); Arterial PCO2 iSTAT 44 MM HG (35-48); Arterial PO2 iSTAT 85 MM HG (80-95); Arterial Total CO2 iSTAT 29 MMO/L (23-27); Arterial pH iSTAT 7.414 (7.35-7.45)
[2022-06-03] MEDS: PANTOPRAZOLE 40 MG VIAL IV SCH (13:59)
[2022-06-03] MEDS: DOXAZOSIN 1 MG TABLET PO SCH ×2 (15:28→21:02)
[2022-06-03] MEDS: METOPROLOL SUCCINATE XL 25 MG TABLET PO SCH (15:28)
[2022-06-03] MEDS: ASPIRIN EC 81 MG TABLET PO SCH (21:02)
[2022-06-04] MEDS: LACTATED RINGERS 1,000 ML IV SCH (03:47)
[2022-06-04] MEDS: INSULIN LISPRO 100 UNIT/ML SUBCUT SCH ×6 (03:48→23:29)
[2022-06-04 06:27] LABS: Basophils % 0.4 % (0.0-0.8); Eosinophils # 0.2 10*3/uL (0.0-0.87); Eosinophils % 2.5 % (0.00-10.9); Hematocrit 23.1 VOL% (42.0-52.0); Immature Granulocytes % 0.4 %; Immature Granulocytes Absolute 0.04 #; Lymphocytes % 11.1 % (21.2-54.2); Mean Corpuscular HGB Conc 30.3 GM/DL (32-36); Mean Corpuscular Volume 96.3 FL (87-102); Mean Platelet Volume 11.1 FL (9.6-12.0); Monocytes # 0.8 10*3/uL (0.11-0.8); Monocytes % 9.3 % (1.7-12.7); Neutrophils % 76.3 % (38.7-73.9); Platelet Count 202 T/CUMM (130-400); Red Cell Distribution Width 16.6 % (9.3-17.3); White Blood Count 9.1 T/CUMM (4-12)
[2022-06-04 07:05] LABS: Albumin 2.7 G/DL (3.4-5.0); Bilirubin,Total 0.4 MG/DL (0.20-1.00); Calcium 10.3 MG/DL (8.5-10.1); Osmolality,Calculated 291.1 MOS/KG (273-304); Potassium 3.9 MMOL/L (3.5-5.1); Total Protein 6.1 G/DL (6.4-8.2)
[2022-06-04] MEDS: AZITHROMYCIN INJ 500 MG in SODIUM CHLORIDE 0.9% 250 ML IV SCH (09:30)
[2022-06-04] MEDS: DOXAZOSIN 1 MG TABLET PO SCH ×2 (09:30→20:27)
[2022-06-04] MEDS: INSULIN LISPRO PROTAMINE/LISPRO 75/25 100 UNIT/ML SUBCUT SCH ×2 (09:45→17:07)
[2022-06-04] MEDS: DEXAMETHASONE 4 MG/1 ML VIAL IV SCH (09:46)
[2022-06-04] MEDS: cloNIDine 0.1 MG TABLET PO SCH ×2 (09:46→20:27)
[2022-06-04] MEDS: APIXABAN 2.5 MG TABLET PO SCH ×2 (09:46→20:28)
[2022-06-04] MEDS: METOPROLOL SUCCINATE XL 25 MG TABLET PO SCH (09:46)
[2022-06-04] MEDS ORDERED: SODIUM CHLORIDE 0.9% 1,000 ML IV PRN (10:20)
[2022-06-04] MEDS ORDERED: FUROSEMIDE 20 MG TABLET PO SCH ×2 (11:09→15:00)
[2022-06-04] MEDS ORDERED: QUEtiapine 25 MG TABLET PO PRN (11:09)
[2022-06-04] MEDS ORDERED: GABAPENTIN 600 MG TABLET PO PRN (11:09)
[2022-06-04] MEDS ORDERED: METHOCARBAMOL 750 MG TABLET PO PRN (11:09)
[2022-06-04] MEDS: MEMANTINE 10 MG TABLET PO SCH ×2 (13:47→20:28)
[2022-06-04] MEDS: MAGNESIUM CHLORIDE 64 MG TABLET PO SCH (13:47)
[2022-06-04] MEDS: SERTRALINE 25 MG TABLET PO SCH (13:47)
[2022-06-04] MEDS: POTASSIUM CHLORIDE 10 MEQ TABLET PO SCH (13:47)
[2022-06-04] MEDS: FENOFIBRATE 160 MG TABLET PO SCH (13:47)
[2022-06-04] MEDS: DUTASTERIDE 0.5 MG CAPSULE PO SCH (13:47)
[2022-06-04] MEDS: PANTOPRAZOLE 40 MG VIAL IV SCH (13:48)
[2022-06-04 14:53] LABS: Arterial Base Excess iSTAT 3 MMOL/L (-2.5-2.5); Arterial Bicarbonate iSTAT 27.4 MMOL/L (20-26); Arterial O2 Saturation iSTAT 83 % (95-100); Arterial PCO2 iSTAT 43 MM HG (35-48); Arterial PO2 iSTAT 48 MM HG (80-95); Arterial Total CO2 iSTAT 29 MMO/L (23-27); Arterial pH iSTAT 7.414 (7.35-7.45)
[2022-06-04 16:52] VITALS: BP 141/65
[2022-06-04] MEDS: FERROUS SULFATE 325 MG TABLET PO SCH (17:07)
[2022-06-04] MEDS: ASPIRIN EC 81 MG TABLET PO SCH (20:27)
[2022-06-04] MEDS ORDERED: SIMVASTATIN 40 MG TABLET PO SCH (21:00)
[2022-06-05] MEDS: hydrALAZINE 20 MG/1 ML VIAL IV PRN ×2 (01:25→05:08)
[2022-06-05] MEDS: INSULIN LISPRO 100 UNIT/ML SUBCUT SCH ×2 (03:28→09:05)
[2022-06-05 04:11] LABS: Basophils % 0.4 % (0.0-0.8); Eosinophils # 0.3 10*3/uL (0.0-0.87); Hematocrit 25.9 VOL% (42.0-52.0); Hemoglobin 8.1 GM/DL (14.0-18.0); Immature Granulocytes % 0.5 %; Immature Granulocytes Absolute 0.04 #; Lymphocytes # 1.1 10*3/uL (1.4-4.0); Mean Corpuscular HGB Conc 31.3 GM/DL (32-36); Mean Corpuscular Volume 93.8 FL (87-102); Mean Platelet Volume 10.8 FL (9.6-12.0); Monocytes # 0.6 10*3/uL (0.11-0.8); Monocytes % 7.1 % (1.7-12.7); Platelet Count 197 T/CUMM (130-400); Red Blood Count 2.76 MC/CUMM (3.8-5.5); Red Cell Distribution Width 16.2 % (9.3-17.3); White Blood Count 8.2 T/CUMM (4-12)
[2022-06-05 04:26] LABS: Calcium 10.4 MG/DL (8.5-10.1); Osmolality,Calculated 293.1 MOS/KG (273-304); Potassium 3.8 MMOL/L (3.5-5.1)
[2022-06-05] MEDS ORDERED: FUROSEMIDE 40 MG TABLET PO SCH (09:00)
[2022-06-05] MEDS: SERTRALINE 25 MG TABLET PO SCH (09:04)
[2022-06-05] MEDS: FERROUS SULFATE 325 MG TABLET PO SCH (09:04)
[2022-06-05] MEDS: METOPROLOL SUCCINATE XL 25 MG TABLET PO SCH (09:04)
[2022-06-05] MEDS: DOXAZOSIN 1 MG TABLET PO SCH (09:04)
[2022-06-05] MEDS: MEMANTINE 10 MG TABLET PO SCH (09:04)
[2022-06-05] MEDS: POTASSIUM CHLORIDE 10 MEQ TABLET PO SCH (09:04)
[2022-06-05] MEDS: MAGNESIUM CHLORIDE 64 MG TABLET PO SCH (09:04)
[2022-06-05] MEDS: INSULIN LISPRO PROTAMINE/LISPRO 75/25 100 UNIT/ML SUBCUT SCH (09:05)
[2022-06-05] MEDS: APIXABAN 2.5 MG TABLET PO SCH (09:05)
[2022-06-05] MEDS: cloNIDine 0.1 MG TABLET PO SCH (09:05)
[2022-06-05] MEDS: FENOFIBRATE 160 MG TABLET PO SCH (09:05)
[2022-06-05] MEDS: DEXAMETHASONE 4 MG/1 ML VIAL IV SCH (09:08)
[2022-06-05] MEDS: AZITHROMYCIN INJ 500 MG in SODIUM CHLORIDE 0.9% 250 ML IV SCH (09:09)
[2022-06-05] MEDS: DUTASTERIDE 0.5 MG CAPSULE PO SCH (09:13)
[2022-06-05] MEDS ORDERED: NIFEdipine 10 MG CAPSULE PO ONE (10:30)
== END 2022-06-05 11:58 | disposition home health service (06) | DRG 637 ==
LOC: EDUNIT# → N.ED 10:51 → N.EDINP 13:29 → N.ICU 14:40
PROVIDERS: ADMIT Internal Medicine; ATTEND Internal Medicine

== ENCOUNTER 2022-11-10 05:34 | Inpatient (IN) ==
[2022-11-09 12:33] LABS: Amorphous Crystals,Urine Few /HPF (Few); Hyaline Casts,Urine 7 /LPF (0-3); Mucus,Urine Occasional /LPF (Occasional); RBC,Urine 1 /HPF (0-4); Urine Color Yellow (Yellow)
[2022-11-09 12:34] LABS: Bilirubin,Urine Negative (Negative); Blood, Urine Trace mg/dL (Negative); Glucose,Urine (UA) 250 mg/dL (Negative); Ketones,Urine Trace mg/dL (Negative); Nitrite,Urine Negative (Negative); Protein,Urine 100 mg/dL (Negative); Urine Appearance Clear (Clear); Urine Urobilinogen 0.2 eU/dL (<2.0); Urine pH 7.5 (4.5-8.0)
[2022-11-09 12:48] LABS: Basophils # 0.1 10*3/uL (0.0-0.2); Basophils % 0.7 % (0.0-0.8); Eosinophils # 0.4 10*3/uL (0.0-0.87); Eosinophils % 5.3 % (0.00-10.9); Hematocrit 31.8 VOL% (42.0-52.0); Hemoglobin 10.2 GM/DL (14.0-18.0); Immature Granulocytes % 0.4 %; Immature Granulocytes Absolute 0.03 #; Lymphocytes # 0.7 10*3/uL (1.4-4.0); Lymphocytes % 10.1 % (21.2-54.2); Mean Corpuscular HGB Conc 32.1 GM/DL (32-36); Mean Platelet Volume 10.4 FL (9.6-12.0); Monocytes # 0.4 10*3/uL (0.11-0.8); Monocytes % 5.8 % (1.7-12.7); Neutrophils % 77.7 % (38.7-73.9); Platelet Count 224 T/CUMM (130-400); Red Blood Count 3.42 MC/CUMM (3.8-5.5); Red Cell Distribution Width 13.8 % (9.3-17.3); White Blood Count 6.92 T/CUMM (4-12)
[2022-11-09 12:58] LABS: PT Patient Result 10.6 SECS (10.1-12.1); Partial Thromboplastin Time 26.3 SECS (23.7-32.9)
[2022-11-09 13:18] LABS: Albumin 3.5 G/DL (3.4-5.0); Bilirubin,Total 0.6 MG/DL (0.20-1.00); Calcium 11.2 MG/DL (8.5-10.1); Osmolality,Calculated 291.4 MOS/KG (273-304); Total Protein 6.7 G/DL (6.4-8.2)
[2022-11-10] MEDS ORDERED: VANCOMYCIN INJ 1,000 MG in SODIUM CHLORIDE 0.9% 250 ML IV ONE (06:00)
[2022-11-10] MEDS ORDERED: MIDAZOLAM 2 MG/2 ML VIAL ONE (06:10)
[2022-11-10] MEDS ORDERED: fentaNYL 100 MCG/2 ML VIAL ONE (06:10)
[2022-11-10] MEDS: LACTATED RINGERS 1,000 ML IV SCH ×2 (06:11→10:04)
[2022-11-10] MEDS ORDERED: ROPIVACAINE 0.5% 30 ML VIAL ONE (06:15)
[2022-11-10] MEDS ORDERED: DEXAMETHASONE 4 MG/1 ML VIAL ONE (06:15)
[2022-11-10] MEDS ORDERED: ACETAMINOPHEN 500 MG TABLET PO ONE (06:29)
[2022-11-10] MEDS ORDERED: FAMOTIDINE 20 MG TABLET PO ONE (06:29)
[2022-11-10] MEDS ORDERED: GABAPENTIN 400 MG CAPSULE PO ONE (06:29)
[2022-11-10] MEDS ORDERED: ePHEDrine 50 MG/ML VIAL ONE (07:01)
[2022-11-10] MEDS ORDERED: LACTULOSE 20 GM/30 ML UDCUP PO PRN (07:05)
[2022-11-10] MEDS ORDERED: ACETAMINOPHEN 325 MG TABLET PO PRN (07:05)
[2022-11-10] MEDS ORDERED: diphenhydrAMINE CAP 25 MG CAPSULE PO PRN (07:05)
[2022-11-10] MEDS ORDERED: MAGNESIUM HYDROXIDE SUSP 30 ML UDCUP PO PRN (07:05)
[2022-11-10] MEDS ORDERED: BISACODYL 10 MG SUPP RECTAL PRN (07:05)
[2022-11-10] MEDS ORDERED: GABAPENTIN 600 MG TABLET PO PRN (07:08)
[2022-11-10] MEDS ORDERED: METHOCARBAMOL 750 MG TABLET PO PRN (07:08)
[2022-11-10] MEDS ORDERED: MORPHINE 2 MG/1 ML SYRINGE IV PRN (07:14)
[2022-11-10] MEDS ORDERED: propofoL 200 MG/20 ML VIAL IV ONE (07:49)
[2022-11-10] MEDS ORDERED: ROCURONIUM 50 MG/5 ML VIAL IV ONE (07:49)
[2022-11-10] MEDS ORDERED: ETOMIDATE 40 MG/20 ML VIAL IV ONE (07:49)
[2022-11-10] MEDS ORDERED: PHENYLEPHRINE 1 MG/10 ML SYRINGE IV ONE (07:49)
[2022-11-10] MEDS ORDERED: SEVOFLURANE 1 UNIT/15 MINUTE INH ONE ×5 (07:49→08:44)
[2022-11-10] MEDS ORDERED: ONDANSETRON 4 MG/2 ML VIAL ONE (07:49)
[2022-11-10] MEDS ORDERED: LIDOCAINE 2% 5 ML VIAL ONE (07:49)
[2022-11-10] MEDS ORDERED: LACTATED RINGERS 1,000 ML IV ONE (08:24)
[2022-11-10] MEDS ORDERED: NEOSTIGMINE 10 MG/10 ML VIAL ONE (08:44)
[2022-11-10] MEDS ORDERED: GLYCOPYRROLATE 0.4 MG/2 ML VIAL ONE (08:45)
[2022-11-10] MEDS ORDERED: cloNIDine 0.1 MG TABLET PO SCH (09:00)
[2022-11-10] MEDS ORDERED: NON-FORMULARY MEDICATION (Omeprazole 40 mg capsule,delayed release(DR/EC)) PO SCH (09:00)
[2022-11-10] MEDS ORDERED: SUGAMMADEX 200 MG/2 ML VIAL IV ONE (09:09)
[2022-11-10] MEDS: INSULIN REGULAR 100 UNIT/ML SUBCUT SCH ×4 (10:37→20:35)
[2022-11-10] MEDS ORDERED: hydrALAZINE 20 MG/1 ML VIAL IV PRN (11:36)
[2022-11-10] MEDS: MORPHINE 2 MG/1 ML SYRINGE IV PRN ×3 (12:43→23:23)
[2022-11-10] MEDS ORDERED: FUROSEMIDE 40 MG TABLET PO SCH (15:00)
[2022-11-10] MEDS: METOPROLOL SUCCINATE XL 25 MG TABLET PO SCH (15:03)
[2022-11-10] MEDS: PANTOPRAZOLE 40 MG TABLET PO SCH (15:03)
[2022-11-10] MEDS: ceFAZolin 2,000 MG/50 ML DUPLEX IV SCH ×2 (15:04→21:02)
[2022-11-10] MEDS: FERROUS SULFATE 325 MG TABLET PO SCH (16:25)
[2022-11-10] MEDS: INSULIN LISPRO PROTAMINE/LISPRO 75/25 100 UNIT/ML SUBCUT SCH (17:11)
[2022-11-10] MEDS: DOXAZOSIN 1 MG TABLET PO SCH (20:26)
[2022-11-10] MEDS: CHOLECALCIFEROL 1,000 UNIT TABLET PO SCH (20:27)
[2022-11-10] MEDS: ASPIRIN EC 81 MG TABLET PO SCH (20:27)
[2022-11-10] MEDS: MULTIVITAMIN (CENTRUM) TABLET PO SCH (20:27)
[2022-11-10] MEDS: QUEtiapine 25 MG TABLET PO SCH (20:27)
[2022-11-10] MEDS: MEMANTINE 10 MG TABLET PO SCH (20:27)
[2022-11-10] MEDS: SIMVASTATIN 40 MG TABLET PO SCH (20:27)
[2022-11-11] MEDS: MORPHINE 2 MG/1 ML SYRINGE IV PRN ×2 (04:17→08:14)
[2022-11-11 06:49] LABS: Calcium 10.4 MG/DL (8.5-10.1); Osmolality,Calculated 284.7 MOS/KG (273-304); Potassium 4.4 MMOL/L (3.5-5.1)
[2022-11-11 07:39] LABS: Basophils % 0.3 % (0.0-0.8); Eosinophils # 0.1 10*3/uL (0.0-0.87); Eosinophils % 0.8 % (0.00-10.9); Hematocrit 26.2 VOL% (42.0-52.0); Hemoglobin 8.4 GM/DL (14.0-18.0); Immature Granulocytes % 0.3 %; Immature Granulocytes Absolute 0.03 #; Lymphocytes # 0.7 10*3/uL (1.4-4.0); Lymphocytes % 7.5 % (21.2-54.2); Mean Corpuscular HGB Conc 32.1 GM/DL (32-36); Mean Corpuscular Volume 94.9 FL (87-102); Neutrophils % 79.1 % (38.7-73.9); Platelet Count 162 T/CUMM (130-400); Red Blood Count 2.76 MC/CUMM (3.8-5.5); Red Cell Distribution Width 14.4 % (9.3-17.3); White Blood Count 8.64 T/CUMM (4-12)
[2022-11-11] MEDS: PANTOPRAZOLE 40 MG TABLET PO SCH (08:12)
[2022-11-11] MEDS: METOPROLOL SUCCINATE XL 25 MG TABLET PO SCH (08:12)
[2022-11-11] MEDS: MAGNESIUM CHLORIDE 64 MG TABLET PO SCH (08:12)
[2022-11-11] MEDS: sitaGLIPtin 25 MG TABLET PO SCH (08:12)
[2022-11-11] MEDS: MEMANTINE 10 MG TABLET PO SCH ×2 (08:13→22:04)
[2022-11-11] MEDS: DOXAZOSIN 1 MG TABLET PO SCH ×2 (08:13→22:04)
[2022-11-11] MEDS: FERROUS SULFATE 325 MG TABLET PO SCH ×2 (08:13→17:12)
[2022-11-11] MEDS: APIXABAN 2.5 MG TABLET PO SCH ×2 (08:13→22:04)
[2022-11-11] MEDS: FUROSEMIDE 40 MG TABLET PO SCH (08:13)
[2022-11-11] MEDS: SERTRALINE 25 MG TABLET PO SCH (08:13)
[2022-11-11] MEDS: POTASSIUM CHLORIDE 10 MEQ TABLET PO SCH (08:13)
[2022-11-11] MEDS: DUTASTERIDE 0.5 MG CAPSULE PO SCH (08:13)
[2022-11-11] MEDS: INSULIN REGULAR 100 UNIT/ML SUBCUT SCH ×4 (08:14→22:06)
[2022-11-11] MEDS: INSULIN LISPRO PROTAMINE/LISPRO 75/25 100 UNIT/ML SUBCUT SCH ×2 (08:23→17:14)
[2022-11-11] MEDS ORDERED: METOPROLOL SUCCINATE XL 50 MG TABLET PO SCH (09:00)
[2022-11-11] MEDS ORDERED: METOPROLOL SUCCINATE XL 25 MG TABLET PO ONE (09:00)
[2022-11-11] MEDS ORDERED: TUBERCULIN SKIN TEST 0.1 ML SYRINGE INTRADERM ONE (11:05)
[2022-11-11] MEDS: MULTIVITAMIN (CENTRUM) TABLET PO SCH (22:03)
[2022-11-11] MEDS: SIMVASTATIN 40 MG TABLET PO SCH (22:03)
[2022-11-11] MEDS: ASPIRIN EC 81 MG TABLET PO SCH (22:05)
[2022-11-11] MEDS: CHOLECALCIFEROL 1,000 UNIT TABLET PO SCH (22:05)
[2022-11-11] MEDS: QUEtiapine 25 MG TABLET PO SCH (22:05)
[2022-11-12] MEDS ORDERED: hydrALAZINE 20 MG/1 ML VIAL IV ONE (08:05)
[2022-11-12] MEDS: INSULIN LISPRO PROTAMINE/LISPRO 75/25 100 UNIT/ML SUBCUT SCH ×2 (09:18→17:38)
[2022-11-12] MEDS: FERROUS SULFATE 325 MG TABLET PO SCH ×2 (09:19→16:49)
[2022-11-12] MEDS: INSULIN REGULAR 100 UNIT/ML SUBCUT SCH ×4 (09:19→22:16)
[2022-11-12] MEDS: DUTASTERIDE 0.5 MG CAPSULE PO SCH (09:19)
[2022-11-12] MEDS: APIXABAN 2.5 MG TABLET PO SCH ×2 (09:20→22:17)
[2022-11-12] MEDS: MEMANTINE 10 MG TABLET PO SCH ×2 (09:20→22:22)
[2022-11-12] MEDS: FUROSEMIDE 40 MG TABLET PO SCH (09:20)
[2022-11-12] MEDS: sitaGLIPtin 25 MG TABLET PO SCH (09:20)
[2022-11-12] MEDS: MAGNESIUM CHLORIDE 64 MG TABLET PO SCH (09:20)
[2022-11-12] MEDS: POTASSIUM CHLORIDE 10 MEQ TABLET PO SCH (09:20)
[2022-11-12] MEDS: DOXAZOSIN 1 MG TABLET PO SCH ×2 (09:20→22:17)
[2022-11-12] MEDS: PANTOPRAZOLE 40 MG TABLET PO SCH (09:20)
[2022-11-12] MEDS: METOPROLOL SUCCINATE XL 50 MG TABLET PO SCH (09:21)
[2022-11-12] MEDS: SERTRALINE 25 MG TABLET PO SCH (09:21)
[2022-11-12] MEDS ORDERED: LACTATED RINGERS 500 ML IV ONE (14:00)
[2022-11-12] MEDS: MORPHINE 2 MG/1 ML SYRINGE IV PRN ×2 (18:17→22:40)
[2022-11-12] MEDS: QUEtiapine 25 MG TABLET PO SCH (22:17)
[2022-11-12] MEDS: SIMVASTATIN 40 MG TABLET PO SCH (22:19)
[2022-11-12] MEDS: ASPIRIN EC 81 MG TABLET PO SCH (22:19)
[2022-11-12] MEDS: CHOLECALCIFEROL 1,000 UNIT TABLET PO SCH (22:20)
[2022-11-12] MEDS: MULTIVITAMIN (CENTRUM) TABLET PO SCH (22:22)
[2022-11-13] MEDS: MORPHINE 2 MG/1 ML SYRINGE IV PRN (07:45)
[2022-11-13] MEDS: DUTASTERIDE 0.5 MG CAPSULE PO SCH (10:31)
[2022-11-13] MEDS: POTASSIUM CHLORIDE 10 MEQ TABLET PO SCH (10:31)
[2022-11-13] MEDS: DOXAZOSIN 1 MG TABLET PO SCH (10:31)
[2022-11-13] MEDS: MAGNESIUM CHLORIDE 64 MG TABLET PO SCH (10:31)
[2022-11-13] MEDS: PANTOPRAZOLE 40 MG TABLET PO SCH (10:31)
[2022-11-13] MEDS: MEMANTINE 10 MG TABLET PO SCH (10:31)
[2022-11-13] MEDS: FUROSEMIDE 40 MG TABLET PO SCH (10:32)
[2022-11-13] MEDS: FERROUS SULFATE 325 MG TABLET PO SCH (10:32)
[2022-11-13] MEDS: sitaGLIPtin 25 MG TABLET PO SCH (10:32)
[2022-11-13] MEDS: APIXABAN 2.5 MG TABLET PO SCH (10:32)
[2022-11-13] MEDS: METOPROLOL SUCCINATE XL 50 MG TABLET PO SCH (10:32)
[2022-11-13] MEDS: INSULIN LISPRO PROTAMINE/LISPRO 75/25 100 UNIT/ML SUBCUT SCH (10:33)
[2022-11-13] MEDS: INSULIN REGULAR 100 UNIT/ML SUBCUT SCH ×2 (10:33→11:37)
[2022-11-13] MEDS: SERTRALINE 25 MG TABLET PO SCH (10:33)
[2022-11-13 11:19] VITALS: BP 157/99
== END 2022-11-13 11:31 | disposition swing bed (61) | DRG 483 ==
LOC: N.SDSINP 05:34 → N.3E 10:13
PROVIDERS: ADMIT Orthopaedic Surgery; ATTEND Orthopaedic Surgery